=== PATIENT | female | born 1940 | race Caucasian/White ===

== ENCOUNTER → 2016-11-27 | Outpatient (REF) | payer MEDICARE, OTHER ==
[~2016-11-27] MED LIST: NAPR500T OR; PRAV20TA2 OR
[2016-11-27 14:22] LABS: ANION GAP 9 MEQ/L (8-16); BLOOD UREA NITROGEN 11 MG/DL (7-18); CALCIUM LEVEL 8.9 MG/DL (8.8-10.2); CARBON DIOXIDE LEVEL 30 MEQ/L (21-32); CHLORIDE LEVEL 103 MEQ/L (98-107); CREATININE FOR GFR 0.63 MG/DL (0.55-1.02); GLOMERULAR FILTRATION RATE > 60.0 (>39); GLUCOSE, FASTING 96 MG/DL (83-110); POTASSIUM SERUM 4.3 MEQ/L (3.5-5.1); SODIUM LEVEL 142 MEQ/L (136-145)
[2016-11-27 14:25] LABS: BASO % 0.6 % (0.0-1.0); EOS % 1.1 % (0.0-3.0); LARGE UNSTAINED CELL # 0.1 K/mm3 (0.0-0.4); LARGE UNSTAINED CELL % 2.5 % (0.0-4.0); LYMPH % 21.1 % (24.0-44.0); MEAN CORPUSCULAR HEMOGLOBIN 29.8 pg (27.0-33.0); MEAN CORPUSCULAR HGB CONC 33.7 g/dl (32.0-36.5); MEAN CORPUSCULAR VOLUME 88.4 fl (80.0-96.0); MONO # 0.5 K/mm3 (0.0-0.8); MONO % 11.5 % (0.0-5.0); NEUTROPHILS # 2.6 K/mm3 (1.8-7.7); NEUTROPHILS % 63.3 % (36.0-66.0); PLATELET COUNT, AUTOMATED 156 k/mm3 (150-450); RED CELL DISTRIBUTION WIDTH 12.8 % (11.5-14.5); WHITE BLOOD COUNT 4.1 K/mm3 (4.0-10.0)
== END ==
LOC: M LAB REF 14:09
PROVIDERS: ATTEND Physician Assistant
DX: R05 Cough (principal)

== ENCOUNTER → 2016-12-20 | Outpatient (REF) | payer MEDICARE, OTHER ==
[2016-12-20 17:50] LABS: ALBUMIN 3.6 GM/DL (3.2-5.2); ALKALINE PHOSPHATASE 150 U/L (45-117); ALT/SGPT 14 U/L (12-78); ANION GAP 5 MEQ/L (8-16); AST/SGOT 8 U/L (15-37); BILIRUBIN,TOTAL 0.6 MG/DL (0.2-1.0); BLOOD UREA NITROGEN 10 MG/DL (7-18); CALCIUM LEVEL 8.8 MG/DL (8.8-10.2); CARBON DIOXIDE LEVEL 29 MEQ/L (21-32); CHLORIDE LEVEL 106 MEQ/L (98-107); CREATININE FOR GFR 0.58 MG/DL (0.55-1.02); GLOMERULAR FILTRATION RATE > 60.0 (>39); GLUCOSE, FASTING 93 MG/DL (83-110); POTASSIUM SERUM 4.3 MEQ/L (3.5-5.1); SODIUM LEVEL 140 MEQ/L (136-145); T UPTAKE 34 % (30-39); THYROXINE (T4) 9.8 UG/DL (4.5-12.0); TOTAL PROTEIN 6.6 GM/DL (6.4-8.2); URIC ACID 3.2 MG/DL (2.6-6.0)
[2016-12-20 18:01] LABS: BASO % 0.3 % (0.0-1.0); EOS # 0.1 K/mm3 (0.0-0.50); EOS % 1.2 % (0.0-3.0); LARGE UNSTAINED CELL # 0.1 K/mm3 (0.0-0.4); LARGE UNSTAINED CELL % 1.4 % (0.0-4.0); LYMPH # 1.3 K/mm3 (1.5-4.5); LYMPH % 18.5 % (24.0-44.0); MEAN CORPUSCULAR HEMOGLOBIN 30.3 pg (27.0-33.0); MEAN CORPUSCULAR HGB CONC 33.3 g/dl (32.0-36.5); MONO # 0.5 K/mm3 (0.0-0.8); MONO % 6.6 % (0.0-5.0); NEUTROPHILS # 4.9 K/mm3 (1.8-7.7); PLATELET COUNT, AUTOMATED 160 k/mm3 (150-450); RED CELL DISTRIBUTION WIDTH 12.6 % (11.5-14.5); WHITE BLOOD COUNT 6.9 K/mm3 (4.0-10.0)
[2016-12-20 18:36] LABS: ERYTHROCYTE SEDIMENTATION RATE 23 mm/hr (0-30)
== END ==
LOC: M LAB REF 16:19
PROVIDERS: ATTEND Surgery
DX: R09.82 Postnasal drip (principal); M25.50 Pain in unspecified joint; R53.83 Other fatigue

== ENCOUNTER 2018-02-21 08:05 | Emergency (ER) | payer MEDICARE, OTHER | END 2018-02-21 12:56 | disposition home or self-care (01) | LOC: M ED 08:05 | DX: S82.832A Other fracture of upper and lower end of left fibula, initial encounter for closed fracture (principal); S82.392A Other fracture of lower end of left tibia, initial encounter for closed fracture; M17.12 Unilateral primary osteoarthritis, left knee; M19.072 Primary osteoarthritis, left ankle and foot; W01.0XXA Fall on same level from slipping, tripping and stumbling without subsequent striking against object, initial encounter; Y92.098 Other place in other non-institutional residence as the place of occurrence of the external cause; I10 Essential (primary) hypertension; L71.9 Rosacea, unspecified; L40.9 Psoriasis, unspecified; Z79.899 Other long term (current) drug therapy | CPT/HCPCS: 73590 ==

== ENCOUNTER → 2018-12-11 | Outpatient (CLI) | payer MEDICARE, OTHER ==
[~2018-12-11] MED LIST changes: +LEVO25TA5
--- NOTE | 2018-12-11 13:34 | REP ---
RIGHT WRIST, FOUR VIEWS: HISTORY: Wrist pain. There is no acute fracture or dislocation. There is narrowing of the first carpometacarpal and first metacarpal phalangeal joint spaces. Chondrocalcinosis is present. Calcification is present lateral to the navicular. This represents ligamentous or tendon calcification. IMPRESSION: Degenerative change as described above. Electronically Signed by Regino Lino MD 12/11/2018 01:39 P
== END ==
LOC: M ADAMS 11:00
PROVIDERS: ATTEND Physician Assistant Medical
DX: M11.231 Other chondrocalcinosis, right wrist (principal)

== ENCOUNTER → 2019-06-25 | Outpatient (REF) | payer MEDICARE, OTHER | LOC: M LAB REF 16:55 | PROVIDERS: ATTEND Family Medicine | DX: M10.9 Gout, unspecified (principal) ==

== ENCOUNTER 2021-01-27 13:37 | Emergency (ER) | payer MEDICARE, OTHER ==
[~2021-01-27] VITALS: Ht 157.5 cm; Wt 104.5 kg
--- NOTE | 2021-01-27 14:20 | REP ---
INDICATION: CHEST PAIN. COMPARISON: None. TECHNIQUE: Portable FINDINGS: The technique utilized in obtaining the radiograph has magnified the cardiac silhouette and accentuated the interstitial markings. The superior mediastinal structures are midline. The cardiac silhouette is enlarged. The diaphragmatic surfaces of the lungs are regular, and the costophrenic angles are clear. The pulmonary beltran are clear. The imaged osseous structures are intact. IMPRESSION: There is no acute cardiopulmonary disease. There is evidence of mild cardiomegaly accentuated by technique. <Electronically signed by Matias Christopher > 01/27/21 [id number]
[2021-01-27 14:26] LABS: BASO % 0.4 % (0.0-1.0); EOS # 0.1 10^3/uL (0.0-0.5); EOS % 0.9 % (0.0-3.0); HEMATOCRIT 45.3 % (36.0-47.0); HEMOGLOBIN 14.7 g/dl (12.0-15.5); LYMPH # 1.5 10^3/uL (1.5-5.0); LYMPH % 21.4 % (24.0-44.0); MEAN CORPUSCULAR HEMOGLOBIN 28.9 pg (27.0-33.0); MEAN CORPUSCULAR HGB CONC 32.5 g/dl (32.0-36.5); MEAN CORPUSCULAR VOLUME 89.2 fl (80.0-96.0); MONO # 0.5 10^3/uL (0.0-0.8); MONO % 7.7 % (2.0-8.0); NEUTROPHILS # 4.7 10^3/uL (1.5-8.5); NEUTROPHILS % 69.2 % (36.0-66.0); PLATELET COUNT, AUTOMATED 177 10^3/uL (150-450); RED BLOOD COUNT 5.08 10^6/uL (4.00-5.40); WHITE BLOOD COUNT 6.8 10^3/uL (4.0-10.0)
[2021-01-27 15:24] LABS: ALBUMIN 3.8 GM/DL (3.2-5.2); ALT/SGPT 20 U/L (12-78); BILIRUBIN,DIRECT 0.1 MG/DL (0.0-0.2); BILIRUBIN,TOTAL 0.4 MG/DL (0.2-1.0); BLOOD UREA NITROGEN 11 MG/DL (7-18); CALCIUM LEVEL 9.3 MG/DL (8.8-10.2); CARBON DIOXIDE LEVEL 29 MEQ/L (21-32); CHLORIDE LEVEL 107 MEQ/L (98-107); CREATININE FOR GFR 0.51 MG/DL (0.55-1.30); FREE T4 1.07 NG/DL (0.76-1.46); GLOMERULAR FILTRATION RATE > 60.0 (>32); GLUCOSE, FASTING 97 MG/DL (70-100); LIPASE 92 U/L (73-393); MAGNESIUM LEVEL 2.4 MG/DL (1.8-2.4); NT-PRO BNP 120 PG/ML (<450); POTASSIUM SERUM 3.9 MEQ/L (3.5-5.1); SODIUM LEVEL 143 MEQ/L (136-145); TOTAL PROTEIN 6.8 GM/DL (6.4-8.2)
[2021-01-27 16:45] VITALS: BP 175/79
--- NOTE | 2021-01-28 03:17 | ECGEPIP ---
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
== END 2021-01-27 17:32 | disposition home or self-care (01) ==
LOC: M ED 13:37 → EDBD 13:37 → M ED 17:32
DX: R00.2 Palpitations (principal); I51.7 Cardiomegaly; F41.9 Anxiety disorder, unspecified; E78.5 Hyperlipidemia, unspecified; I11.9 Hypertensive heart disease without heart failure

== ENCOUNTER → 2021-05-05 | Outpatient (CLI) | payer MEDICARE ==
--- NOTE | 2021-05-05 15:27 | DEXAMM ---
INDICATION: MENOPAUSAL/N95.9. COMPARISON: None. TECHNIQUE: Bone density was measured using dual-energy x-ray absorptiometry (DEXA). FINDINGS: AP SPINE L1-L4 BMD 1.076 g/cm2 Young Adult T-Score -1.0 Age Matched Z-Score 0.9. LT FEMUR, TOTAL BMD 0.754 g/cm2 Young Adult T-Score -2.0 Age Matched Z-Score 0.1. LT NECK BMD 0.619 g/cm2 Young Adult T-Score -3.0 Age Matched Z-Score -0.8. RT FEMUR, TOTAL BMD 0.671 g/cm2 Young Adult T-Score -2.7 Age Matched Z-Score -0.6. RT NECK BMD 0.638 g/cm2 Young Adult T-Score -2.9 Age Matched Z-Score -0.7. IMPRESSION: There is low bone density of the spine. There is osteoporosis of the left hip. There is osteoporosis of the right hip. FOLLOW-UP: Recommendation for the next bone density exam: 2 years. <Electronically signed by Steve Holman > 05/05/21 [id number]
== END ==
LOC: M WHC 13:01
PROVIDERS: ATTEND Pediatrics
DX: N95.9 Unspecified menopausal and perimenopausal disorder (principal)

== ENCOUNTER → 2022-07-26 | Outpatient (REF) | payer MEDICARE ==
[2022-07-26 17:35] LABS: BASO % 0.7 % (0.0-1.0); EOS # 0.1 10^3/uL (0.0-0.5); EOS % 1.4 % (0.0-3.0); HEMATOCRIT 46.2 % (36.0-47.0); HEMOGLOBIN 14.7 g/dl (12.0-15.5); LYMPH # 1.6 10^3/uL (1.5-5.0); LYMPH % 27.2 % (24.0-44.0); MEAN CORPUSCULAR HEMOGLOBIN 29.5 pg (27.0-33.0); MEAN CORPUSCULAR HGB CONC 31.8 g/dl (32.0-36.5); MEAN CORPUSCULAR VOLUME 92.6 fl (80.0-96.0); MONO # 0.4 10^3/uL (0.0-0.8); MONO % 7.4 % (2.0-8.0); NEUTROPHILS # 3.7 10^3/uL (1.5-8.5); NEUTROPHILS % 63.1 % (36.0-66.0); PLATELET COUNT, AUTOMATED 216 10^3/uL (150-450); RED BLOOD COUNT 4.99 10^6/uL (4.00-5.40); WHITE BLOOD COUNT 5.8 10^3/uL (4.0-10.0)
[2022-07-26 17:53] LABS: BLOOD UREA NITROGEN 10 MG/DL (9-23); CALCIUM LEVEL 9.6 MG/DL (8.3-10.6); CARBON DIOXIDE LEVEL 30 MMOL/L (20-31); CHLORIDE LEVEL 104 MMOL/L (98-107); CHOLESTEROL LEVEL 186 MG/DL (<200); CHOLESTEROL RISK RATIO 3.52 (<5); CREATININE FOR GFR 0.55 MG/DL (0.55-1.30); GLOMERULAR FILTRATION RATE > 60.0 (>32); GLUCOSE, FASTING 85 MG/DL (74-106); HDL CHOLESTEROL 52.8 MG/DL (>40); LDL CHOLESTEROL 110.4 MG/DL (<100); NON-HDL-C 133 MG/DL; POTASSIUM SERUM 4.7 MMOL/L (3.5-5.1); SODIUM LEVEL 143 MMOL/L (136-145); TRIGLYCERIDES LEVEL 114 MG/DL (<150)
[2022-07-26 17:55] LABS: THYROID STIMULATING HORMONE 3.456 uIU/ML (0.55-4.78)
== END ==
LOC: M LAB REF 16:46
PROVIDERS: ATTEND Pediatrics
DX: I10 Essential (primary) hypertension (principal); E03.9 Hypothyroidism, unspecified; E78.5 Hyperlipidemia, unspecified

== ENCOUNTER → 2023-01-30 | Outpatient (REF) | payer MEDICARE, MEDICAID ==
[2023-01-30 17:32] LABS: BASO # 0.1 10^3/uL (0.0-0.2); BASO % 0.9 % (0.0-1.0); EOS # 0.1 10^3/uL (0.0-0.5); EOS % 1.7 % (0.0-3.0); HEMATOCRIT 46.5 % (36.0-47.0); HEMOGLOBIN 14.8 g/dl (12.0-15.5); LYMPH # 1.6 10^3/uL (1.5-5.0); MEAN CORPUSCULAR HEMOGLOBIN 29.1 pg (27.0-33.0); MEAN CORPUSCULAR HGB CONC 31.8 g/dl (32.0-36.5); MEAN CORPUSCULAR VOLUME 91.5 fl (80.0-96.0); MONO # 0.4 10^3/uL (0.0-0.8); MONO % 7.3 % (2.0-8.0); NEUTROPHILS # 3.6 10^3/uL (1.5-8.5); NEUTROPHILS % 61.8 % (36.0-66.0); PLATELET COUNT, AUTOMATED 187 10^3/uL (150-450); RED BLOOD COUNT 5.08 10^6/uL (4.00-5.40); WHITE BLOOD COUNT 5.8 10^3/uL (4.0-10.0)
[2023-01-30 18:03] LABS: ALKALINE PHOSPHATASE 130 U/L (46-116); ALT/SGPT 13 U/L (7.0-40); AST/SGOT 10 U/L (<34); BILIRUBIN,TOTAL 0.7 MG/DL (0.3-1.2); BLOOD UREA NITROGEN 12 MG/DL (9-23); CALCIUM LEVEL 9.6 MG/DL (8.3-10.6); CARBON DIOXIDE LEVEL 28 MMOL/L (20-31); CHLORIDE LEVEL 104 MMOL/L (98-107); CHOLESTEROL LEVEL 197 MG/DL (<200); CHOLESTEROL RISK RATIO 3.36 (<5); GLOMERULAR FILTRATION RATE > 60.0 (>32); GLUCOSE, FASTING 82 MG/DL (74-106); HDL CHOLESTEROL 58.6 MG/DL (>40); NON-HDL-C 138.4 MG/DL; POTASSIUM SERUM 4.8 MMOL/L (3.5-5.1); SODIUM LEVEL 138 MMOL/L (136-145); TOTAL PROTEIN 6.6 G/DL (5.7-8.2); TRIGLYCERIDES LEVEL 82 MG/DL (<150)
[2023-01-30 18:04] LABS: THYROID STIMULATING HORMONE 3.336 uIU/ML (0.55-4.78); TOTAL 25(OH) VITAMIN D 27.4 NG/ML (20.0-100.0)
[2023-01-30 18:15] LABS: HEMOGLOBIN A1c 5.3 % (4.0-6.0)
== END ==
LOC: M LAB REF 16:52
PROVIDERS: ATTEND Pediatrics
DX: E03.9 Hypothyroidism, unspecified (principal); E66.01 Morbid (severe) obesity due to excess calories; E55.9 Vitamin D deficiency, unspecified; Z68.41 Body mass index [BMI] 40.0-44.9, adult; E78.5 Hyperlipidemia, unspecified; Z79.899 Other long term (current) drug therapy

== ENCOUNTER → 2023-03-13 | Outpatient (REF) | payer MEDICARE, MEDICAID ==
[2023-03-13 17:55] LABS: BLOOD UREA NITROGEN 10 MG/DL (9-23); CALCIUM LEVEL 9.2 MG/DL (8.3-10.6); CARBON DIOXIDE LEVEL 28 MMOL/L (20-31); CHLORIDE LEVEL 104 MMOL/L (98-107); CREATININE FOR GFR 0.52 MG/DL (0.55-1.30); GLOMERULAR FILTRATION RATE > 60.0 (>32); GLUCOSE, FASTING 84 MG/DL (74-106); MAGNESIUM LEVEL 1.8 MG/DL (1.8-2.4); POTASSIUM SERUM 4.2 MMOL/L (3.5-5.1); SODIUM LEVEL 141 MMOL/L (136-145)
[2023-03-13 18:03] LABS: CPK CREATINE PHOSPHOKINASE 50 U/L (34-145)
== END ==
LOC: M LAB REF 16:21
PROVIDERS: ATTEND Pediatrics
DX: M79.10 Myalgia, unspecified site (principal)

== ENCOUNTER → 2023-05-02 | Outpatient (REF) | payer MEDICARE, MEDICAID ==
[2023-05-02 20:47] LABS: CHOLESTEROL RISK RATIO 4.76 (<5); LDL CHOLESTEROL 164.4 MG/DL (<100)
== END ==
LOC: M LAB REF 16:31
PROVIDERS: ATTEND Pediatrics
DX: E78.5 Hyperlipidemia, unspecified (principal)

== ENCOUNTER → 2023-08-01 | Outpatient (REF) | payer MEDICARE ==
[2023-08-01 17:55] LABS: ALBUMIN 4.1 G/DL (3.2-5.2); ALKALINE PHOSPHATASE 121 U/L (46-116); ALT/SGPT 14 U/L (7.0-40); AST/SGOT 16 U/L (<34); BILIRUBIN,TOTAL 0.7 MG/DL (0.3-1.2); BLOOD UREA NITROGEN 12 MG/DL (9-23); CALCIUM LEVEL 9.3 MG/DL (8.3-10.6); CARBON DIOXIDE LEVEL 29 MMOL/L (20-31); CHLORIDE LEVEL 106 MMOL/L (98-107); CHOLESTEROL LEVEL 200 MG/DL (<200); CHOLESTEROL RISK RATIO 3.48 (<5); CREATININE FOR GFR 0.52 MG/DL (0.55-1.30); GLOMERULAR FILTRATION RATE > 60.0 (>32); GLUCOSE, FASTING 82 MG/DL (74-106); HDL CHOLESTEROL 57.4 MG/DL (>40); LDL CHOLESTEROL 126.6 MG/DL (<100); NON-HDL-C 142.6 MG/DL; POTASSIUM SERUM 4.4 MMOL/L (3.5-5.1); SODIUM LEVEL 142 MMOL/L (136-145); TOTAL PROTEIN 6.7 G/DL (5.7-8.2); TRIGLYCERIDES LEVEL 80 MG/DL (<150)
[2023-08-01 17:57] LABS: THYROID STIMULATING HORMONE 4.403 uIU/ML (0.55-4.78)
== END ==
LOC: M LAB REF 16:44
PROVIDERS: ATTEND Pediatrics
DX: E03.9 Hypothyroidism, unspecified (principal); E78.5 Hyperlipidemia, unspecified

== ENCOUNTER → 2024-01-08 | Outpatient (REF) | payer MEDICARE | LOC: M LABDRWAD 12:22 | PROVIDERS: ATTEND Pediatrics | DX: E03.9 Hypothyroidism, unspecified (principal) ==

== ENCOUNTER → 2024-02-26 | Outpatient (CLI) | payer MEDICARE | LOC: M RAD 10:42 | PROVIDERS: ATTEND Pediatrics | DX: D17.21 Benign lipomatous neoplasm of skin and subcutaneous tissue of right arm (principal) ==

== ENCOUNTER 2024-04-21 12:18 | Observation (INO) | payer MEDICARE ==
[~2024-04-21] VITALS: Ht 154.9 cm; Wt 100.1 kg
[~2024-04-21 12:18] MED LIST changes: -LEVO25TA5; +LEVO25TA5 PO
[2024-04-21] MEDS ORDERED: CITA10TA7 PO (13:20)
[2024-04-21] MEDS: NAPROXEN 250 MG TAB PO ONE (13:35)
[2024-04-21 15:00] LABS: HEMATOCRIT 44.1 % (36.0-47.0); HEMOGLOBIN 14.6 g/dl (12.0-15.5); MEAN CORPUSCULAR HEMOGLOBIN 29.6 pg (27.0-33.0); MEAN CORPUSCULAR HGB CONC 33.1 g/dl (32.0-36.5); MEAN CORPUSCULAR VOLUME 89.5 fl (80.0-96.0); PLATELET COUNT, AUTOMATED 166 10^3/uL (150-450); RED BLOOD COUNT 4.93 10^6/uL (4.00-5.40); WHITE BLOOD COUNT 10.8 10^3/uL (4.0-10.0)
[2024-04-21 15:20] LABS: BLOOD UREA NITROGEN 13 MG/DL (9-23); CALCIUM LEVEL 9.2 MG/DL (8.3-10.6); CARBON DIOXIDE LEVEL 30 MMOL/L (20-31); CHLORIDE LEVEL 110 MMOL/L (98-107); CREATININE FOR GFR 0.55 MG/DL (0.55-1.30); GLOMERULAR FILTRATION RATE > 60.0 (>32); GLUCOSE, FASTING 102 MG/DL (74-106); POTASSIUM SERUM 4.8 MMOL/L (3.5-5.1); SODIUM LEVEL 144 MMOL/L (136-145)
[2024-04-21 15:23] LABS: CPK CREATINE PHOSPHOKINASE 45 U/L (34-145)
[2024-04-21] MEDS: traMADol 50 MG TAB PO ONE (15:48)
[2024-04-21] MEDS ORDERED: TRAM-533 PO (15:50)
[2024-04-21] MEDS ORDERED: oxyCODONE 5MG TAB PO PRN (17:30)
[2024-04-21] MEDS ORDERED: VITA100054 PO (17:55)
[2024-04-21] MEDS ORDERED: PRAV20TA2 PO (17:55)
[2024-04-21] MEDS ORDERED: HOME MED LIST COMPLETE! XX SCH (18:00)
[2024-04-21 21:04] VITALS: BP 149/66; TEMP 97.7; O2SAT 95
[2024-04-21] MEDS: CYCLOBENZAPRINE 5MG TABLET PO SCH (21:14)
[2024-04-21] MEDS: PRAVASTATIN 20 MG TAB PO SCH (21:14)
[2024-04-21] MEDS: CitaloPRAM (CeleXA) 10 MG TABLET PO SCH (21:14)
[2024-04-21] MEDS: ACETAMINOPHEN 500 MG TAB PO SCH (21:15)
[2024-04-22 03:50] VITALS: BP 124/56; TEMP 97.7; O2SAT 95
[2024-04-22] MEDS: LEVOTHYROXINE 37.5MCG PER 1/2TAB (0.0375MG) PO SCH (05:37)
[2024-04-22 05:58] LABS: HEMATOCRIT 40.1 % (36.0-47.0); HEMOGLOBIN 13.2 g/dl (12.0-15.5); MEAN CORPUSCULAR HEMOGLOBIN 29.5 pg (27.0-33.0); MEAN CORPUSCULAR HGB CONC 32.9 g/dl (32.0-36.5); MEAN CORPUSCULAR VOLUME 89.5 fl (80.0-96.0); PLATELET COUNT, AUTOMATED 142 10^3/uL (150-450); RED BLOOD COUNT 4.48 10^6/uL (4.00-5.40)
[2024-04-22 06:22] LABS: BLOOD UREA NITROGEN 14 MG/DL (9-23); CALCIUM LEVEL 9.1 MG/DL (8.3-10.6); CARBON DIOXIDE LEVEL 29 MMOL/L (20-31); CHLORIDE LEVEL 109 MMOL/L (98-107); CREATININE FOR GFR 0.53 MG/DL (0.55-1.30); GLOMERULAR FILTRATION RATE > 60.0 (>32); GLUCOSE, FASTING 97 MG/DL (74-106); SODIUM LEVEL 141 MMOL/L (136-145)
[2024-04-22] MEDS: ENOXAPARIN 40MG/0.4ML SYRINGE (J1650 PER 10MG) SC SCH (07:59)
[2024-04-22 08:00] VITALS: BP 142/68; TEMP 97.7; O2SAT 98
[2024-04-22 12:00] VITALS: BP 137/64; TEMP 97.9; O2SAT 98
[2024-04-22] MEDS: DOCUSATE SODIUM 100MG CAPSULE PO SCH (14:30)
[2024-04-22] MEDS: PERCOCET 5MG/325MG TAB PO PRN (14:30)
[2024-04-22 16:00] VITALS: BP 152/67; TEMP 97.9; O2SAT 95
[2024-04-22 21:00] VITALS: BP 153/66; TEMP 98.1; O2SAT 95
[2024-04-22] MEDS: SENNA 8.6 MG TAB (SENOKOT) PO SCH (21:10)
[2024-04-22 23:58] VITALS: BP 128/55; TEMP 97.9; O2SAT 93
[2024-04-23 03:20] VITALS: BP 129/55; TEMP 97.9; O2SAT 93
[2024-04-23 07:05] VITALS: BP 140/78; TEMP 97.7; O2SAT 97
[2024-04-23 08:30] VITALS: BP 139/66; TEMP 98.1; O2SAT 96
[2024-04-23 12:30] VITALS: BP 122/58; TEMP 97.5; O2SAT 96
[2024-04-23 16:00] VITALS: BP 142/65; TEMP 97.7; O2SAT 93
[2024-04-23 20:42] VITALS: BP 147/66; TEMP 97.9; O2SAT 94
[2024-04-24 00:20] VITALS: BP 128/57; TEMP 97.7; O2SAT 95
[2024-04-24 04:00] VITALS: BP 130/58; TEMP 97.9; O2SAT 96
[2024-04-24] MEDS: MOM 30ML SUSPENSION UDC PO PRN (08:05)
[2024-04-24] MEDS: PERCOCET 5MG/325MG TAB PO PRN (09:33)
[2024-04-24 12:00] VITALS: BP 123/47; TEMP 97.3; O2SAT 97
[2024-04-24 20:00] VITALS: BP 165/64; TEMP 97.9; O2SAT 98
[2024-04-25 03:37] VITALS: BP 139/59; TEMP 97.9; O2SAT 98
[2024-04-25] MEDS ORDERED: MOM30SS2 PO (09:41)
[2024-04-25] MEDS ORDERED: SENO8.6T5 PO (09:41)
[2024-04-25] MEDS ORDERED: PERCOCET PO (09:41)
[2024-04-25] MEDS ORDERED: COLA100C5 PO (09:41)
== END 2024-04-25 11:33 ==
LOC: M ED 12:18 → EDBD 12:18 → M ED INP 12:19 → M MSPAV 20:53
PROVIDERS: ADMIT Internal Medicine; ATTEND Internal Medicine
DX: S72.114A Nondisplaced fracture of greater trochanter of right femur, initial encounter for closed fracture (principal); W18.31XA Fall on same level due to stepping on an object, initial encounter; Y92.098 Other place in other non-institutional residence as the place of occurrence of the external cause; Y93.89 Activity, other specified; Y99.8 Other external cause status; E03.9 Hypothyroidism, unspecified; E78.5 Hyperlipidemia, unspecified; F32.A Depression, unspecified; I10 Essential (primary) hypertension; M25.551 Pain in right hip; M16.11 Unilateral primary osteoarthritis, right hip; M85.851 Other specified disorders of bone density and structure, right thigh; Z90.49 Acquired absence of other specified parts of digestive tract; Z87.81 Personal history of (healed) traumatic fracture; Z79.899 Other long term (current) drug therapy; Z79.890 Hormone replacement therapy
CPT/HCPCS: 36415; 73502; 73552; 73700; 80048; 82550; 85027; 87426; 96372; 97116; 97161; 97165; 97530; 97535; 99285; G0378; J1650

== ENCOUNTER 2024-04-28 17:40 | Inpatient (IN) | payer MEDICARE, OTHER ==
[~2024-04-28] VITALS: Ht 154.9 cm; Wt 97.9 kg
[~2024-04-28 17:40] MED LIST changes: +CITA10TA7 PO; +COLA100C5 PO; +MOM30SS2 PO; +PERCOCET PO; +PRAV20TA2 PO; +SENO8.6T5 PO; +TRAM-533 PO; +VITA100054 PO
[2024-04-28 23:19] LABS: ALBUMIN 3.6 G/DL (3.2-5.2); ALKALINE PHOSPHATASE 121 U/L (46-116); ALT/SGPT 17 U/L (7.0-40); AST/SGOT 14 U/L (<34); BILIRUBIN,TOTAL 0.5 MG/DL (0.3-1.2); BLOOD UREA NITROGEN 16 MG/DL (9-23); CARBON DIOXIDE LEVEL 29 MMOL/L (20-31); CHLORIDE LEVEL 105 MMOL/L (98-107); CREATININE FOR GFR 0.67 MG/DL (0.55-1.30); GLOMERULAR FILTRATION RATE > 60.0 (>32); GLUCOSE, FASTING 99 MG/DL (74-106); POTASSIUM SERUM 4.4 MMOL/L (3.5-5.1); SODIUM LEVEL 138 MMOL/L (136-145); TOTAL PROTEIN 6.1 G/DL (5.7-8.2)
[2024-04-28] MEDS: ACETAMINOPHEN *IV* 1,000 MG in IV 1 EA IV ONE (23:22)
[2024-04-28 23:23] LABS: BASO % 0.4 % (0.0-1.0); EOS # 0.2 10^3/uL (0.0-0.5); EOS % 2.2 % (0.0-3.0); HEMOGLOBIN 13.3 g/dl (12.0-15.5); LYMPH # 1.4 10^3/uL (1.5-5.0); LYMPH % 18.9 % (24.0-44.0); MEAN CORPUSCULAR HEMOGLOBIN 29.4 pg (27.0-33.0); MEAN CORPUSCULAR HGB CONC 32.4 g/dl (32.0-36.5); MEAN CORPUSCULAR VOLUME 90.7 fl (80.0-96.0); MONO # 0.7 10^3/uL (0.0-0.8); NEUTROPHILS % 69.1 % (36.0-66.0); PLATELET COUNT, AUTOMATED 181 10^3/uL (150-450); RED BLOOD COUNT 4.52 10^6/uL (4.00-5.40); WHITE BLOOD COUNT 7.2 10^3/uL (4.0-10.0)
[2024-04-29] MEDS ORDERED: CITA10TA7 PO (00:31)
[2024-04-29] MEDS ORDERED: DOCU100C16 PO (00:31)
[2024-04-29] MEDS ORDERED: ASPI325T42 PO (00:31)
[2024-04-29] MEDS ORDERED: ATOR1TAB19 PO (00:31)
[2024-04-29] MEDS ORDERED: VITA-168 PO (00:31)
[2024-04-29] MEDS ORDERED: DRIS50003 PO (00:31)
[2024-04-29] MEDS ORDERED: SYNT75TA PO (00:31)
[2024-04-29] MEDS ORDERED: PERC5TAB12 PO (00:43)
[2024-04-29] MEDS ORDERED: SENN-186 PO (00:43)
[2024-04-29] MEDS ORDERED: HOME MED LIST COMPLETE! XX SCH (00:45)
[2024-04-29] MEDS ORDERED: MOM 30ML SUSPENSION UDC PO PRN (01:05)
[2024-04-29] MEDS ORDERED: KETOROLAC 30 MG/ML 1ML VIAL IV PRN (01:10)
[2024-04-29] MEDS ORDERED: PILL CUTTER 1 EACH XX PRN (01:20)
[2024-04-29] MEDS: KETOROLAC 30 MG/ML 1ML VIAL IV PRN (03:13)
[2024-04-29 05:10] VITALS: BP 165/72; TEMP 97.2; O2SAT 94
[2024-04-29 05:12] LABS: INR 1.1; PARTIAL THROMBOPLASTIN TIME 20.8 SECONDS (24.8-34.2); PROTHROMBIN TIME 13.9 SECONDS (12.5-14.5)
[2024-04-29] MEDS: LEVOTHYROXINE 37.5MCG PER 1/2TAB (0.0375MG) PO SCH (05:51)
[2024-04-29 08:08] VITALS: BP 176/78; TEMP 97; O2SAT 96
[2024-04-29] MEDS: DOCUSATE SODIUM 100MG CAPSULE PO SCH (08:31)
[2024-04-29] MEDS: SENNA 8.6 MG TAB (SENOKOT) PO SCH (08:32)
[2024-04-29] MEDS: VITAMIN D 1,000 INTERNATIONAL UNITS TABLET PO SCH (08:32)
[2024-04-29] MEDS: MORPHINE 4 MG/ML 1ML VIAL IV ONE (11:11)
[2024-04-29] MEDS ORDERED: ONDANSETRON 4MG 2ML VIAL IV PRN ×2 (11:15→15:40)
[2024-04-29] MEDS: NS 1,000 ML IV SCH (12:33)
[2024-04-29] MEDS ORDERED: ETOMIDATE INJ 20MG/10ML VIAL As Ordered ONE (12:37)
[2024-04-29] MEDS ORDERED: ROCURONIUM BROMIDE 50MG/5ML VIAL As Ordered ONE (12:37)
[2024-04-29] MEDS ORDERED: LIDOCAINE 2% 100MG/5ML SDV (FOR ANES.) As Ordered ONE (12:37)
[2024-04-29] MEDS ORDERED: SUGAMMADEX SODIUM 500 MG/5 ML VIAL (BRIDION) As Ordered ONE (12:37)
[2024-04-29] MEDS ORDERED: ACETAMINOPHEN 1000MG 100ML IV BAG As Ordered ONE (12:37)
[2024-04-29] MEDS ORDERED: ONDANSETRON 4MG 2ML VIAL As Ordered ONE (12:37)
[2024-04-29] MEDS ORDERED: fentaNYL 100 MCG/2 ML INJECTION As Ordered ONE (12:38)
[2024-04-29] MEDS: ceFAZolin 2 GM/D5W 50 ML IV BAG As Ordered ONE (13:45)
[2024-04-29] MEDS: TRANEXAMIC ACID 100 MG/ML 10ML VIAL As Ordered ONE (14:00)
[2024-04-29] MEDS ORDERED: ePHEDrine SULFATE 25 MG/5 ML(5MG/ML) SYRINGE As Ordered ONE (14:12)
[2024-04-29] MEDS ORDERED: PHENYLEPHRINE 10MG/ML 1ML VIAL As Ordered ONE (14:13)
[2024-04-29] MEDS: LIDOCAINE W/EPINEPHRINE 1% 20ML VIAL As Ordered ONE (15:01)
[2024-04-29] MEDS: LR 1,000 ML IV SCH ×2 (15:20→15:40)
[2024-04-29] MEDS ORDERED: oxyCODONE 5MG TAB PO PRN (15:40)
[2024-04-29] MEDS ORDERED: HYDROMORPHONE HCL 0.5 MG/ 0.5 ML SYRINGE IV PRN (15:40)
[2024-04-29] MEDS ORDERED: fentaNYL 100 MCG/2 ML INJECTION IV PRN (15:40)
[2024-04-29] MEDS: hydrALAZINE 20MG/ML 1ML VIAL IV PRN (15:50)
[2024-04-29] MEDS ORDERED: hydrALAZINE 20MG/ML 1ML VIAL As Ordered ONE (15:55)
[2024-04-29 16:42] VITALS: BP 162/64; TEMP 96.8; O2SAT 97
[2024-04-29 17:19] VITALS: BP 147/63; O2SAT 94
[2024-04-29 18:00] VITALS: BP 135/65; O2SAT 95
[2024-04-29 18:57] VITALS: BP 131/59; O2SAT 97
[2024-04-29] MEDS: ATORVASTATIN 10 MG TAB PO SCH (20:39)
[2024-04-29] MEDS: ACETAMINOPHEN TAB 650MG DOSE (2X325MG) PO PRN (20:40)
[2024-04-29] MEDS: ASPIRIN 81MG ENTERIC TABLET PO SCH (20:40)
[2024-04-29] MEDS: CitaloPRAM (CeleXA) 10 MG TABLET PO SCH (20:40)
[2024-04-29] MEDS: ceFAZolin SOD 2 GM in IV 1 EA IV SCH (21:02)
[2024-04-30 03:57] VITALS: BP 133/71; TEMP 97.8; O2SAT 95
[2024-04-30 04:08] VITALS: BP 127/66; TEMP 98.1; O2SAT 93
[2024-04-30 06:08] LABS: HEMATOCRIT 34.9 % (36.0-47.0); HEMOGLOBIN 11.4 g/dl (12.0-15.5); MEAN CORPUSCULAR HEMOGLOBIN 29.5 pg (27.0-33.0); MEAN CORPUSCULAR HGB CONC 32.7 g/dl (32.0-36.5); MEAN CORPUSCULAR VOLUME 90.4 fl (80.0-96.0); PLATELET COUNT, AUTOMATED 146 10^3/uL (150-450); RED BLOOD COUNT 3.86 10^6/uL (4.00-5.40)
[2024-04-30 06:35] LABS: BLOOD UREA NITROGEN 12 MG/DL (9-23); CALCIUM LEVEL 7.9 MG/DL (8.3-10.6); CARBON DIOXIDE LEVEL 26 MMOL/L (20-31); CHLORIDE LEVEL 107 MMOL/L (98-107); CREATININE FOR GFR 0.51 MG/DL (0.55-1.30); GLOMERULAR FILTRATION RATE > 60.0 (>32); GLUCOSE, FASTING 108 MG/DL (74-106); SODIUM LEVEL 137 MMOL/L (136-145); TOTAL 25(OH) VITAMIN D 36.4 NG/ML (20.0-100.0)
[2024-04-30] MEDS ORDERED: oxyCODONE 5MG TAB PO PRN (07:05)
[2024-04-30] MEDS: KETOROLAC 30 MG/ML 1ML VIAL IV SCH (09:10)
[2024-04-30] MEDS: ACETAMINOPHEN 500 MG TAB PO SCH (09:10)
[2024-04-30] MEDS: FERROUS SULFATE 325MG TAB PO SCH (09:11)
[2024-04-30] MEDS: ASCORBIC ACID 500 MG TAB PO SCH (09:11)
[2024-04-30 12:00] VITALS: BP 129/65; TEMP 97.9; O2SAT 98
[2024-04-30 20:28] VITALS: BP 142/66; TEMP 98.1; O2SAT 95
[2024-05-01 04:28] VITALS: BP 143/58; TEMP 97.7; O2SAT 93
[2024-05-01 06:00] VITALS: BP 131/65
[2024-05-01] MEDS ORDERED: ASCO50TA PO (08:03)
[2024-05-01] MEDS ORDERED: ACET-683 PO (08:03)
[2024-05-01] MEDS ORDERED: FERR1TAB8 PO (08:03)
[2024-05-01] MEDS ORDERED: KETO10TAB PO (10:15)
[2024-05-01] MEDS: FLUBLOK(EGGFREE) TRIVAL(24-25) VACCINE PF 0.5ML SYRINGE 18YRS & OLDER IM.IMMUN ONE (11:46)
[2024-05-01 12:00] VITALS: BP 127/64; TEMP 97.2; O2SAT 96
== END 2024-05-01 13:46 | DRG 481 ==
LOC: EDBD 17:40 → M ED 17:40 → M ED INP 04-29 01:01 → M PCU 04-29 05:02 → M MSPAV 04-30 04:07
PROVIDERS: ADMIT Student in an Organized Health Care Education/Training Program; ATTEND Internal Medicine Nephrology
PROC: 0QS636Z Reposition Right Upper Femur with Intramedullary Internal Fixation Device, Percutaneous Approach (ICD-10-PCS; principal; 2024-04-29 13:00)
DX: S72.141A Displaced intertrochanteric fracture of right femur, initial encounter for closed fracture (principal); Z68.41 Body mass index [BMI] 40.0-44.9, adult; F32.A Depression, unspecified; E03.9 Hypothyroidism, unspecified; I10 Essential (primary) hypertension; S72.111D Displaced fracture of greater trochanter of right femur, subsequent encounter for closed fracture with routine healing; W18.30XA Fall on same level, unspecified, initial encounter; Y93.89 Activity, other specified; L40.9 Psoriasis, unspecified; G89.29 Other chronic pain; M62.838 Other muscle spasm; L71.9 Rosacea, unspecified; E66.01 Morbid (severe) obesity due to excess calories; Y99.8 Other external cause status; M54.9 Dorsalgia, unspecified; Y92.122 Bedroom in nursing home as the place of occurrence of the external cause; E78.5 Hyperlipidemia, unspecified; Z66 Do not resuscitate; E55.9 Vitamin D deficiency, unspecified; Z79.82 Long term (current) use of aspirin; Z79.890 Hormone replacement therapy; Z79.899 Other long term (current) drug therapy; Z90.49 Acquired absence of other specified parts of digestive tract

== ENCOUNTER → 2024-05-09 | Outpatient (CLI) | payer MEDICARE ==
[~2024-05-09] MED LIST changes: +ACET-683 PO; +ASCO50TA PO; +ASPI325T42 PO; +ATOR1TAB19 PO; +DOCU100C16 PO; +DRIS50003 PO; +FERR1TAB8 PO; +KETO10TAB PO; +PERC5TAB12 PO; +SENN-186 PO; +SYNT75TA PO; +VITA-168 PO
== END ==
LOC: M SOG 07:21
PROVIDERS: ATTEND Orthopaedic Surgery
DX: Z47.89 Encounter for other orthopedic aftercare (principal); M25.551 Pain in right hip

== ENCOUNTER → 2024-06-06 | Outpatient (CLI) | payer MEDICARE | LOC: M SOG 07:19 | PROVIDERS: ATTEND Orthopaedic Surgery | DX: S72.141D Displaced intertrochanteric fracture of right femur, subsequent encounter for closed fracture with routine healing (principal); M25.561 Pain in right knee ==

== ENCOUNTER → 2024-08-05 | Outpatient (REF) | payer MEDICARE, MEDICAID ==
[2024-08-05 17:58] LABS: URIC ACID 4.1 MG/DL (3.1-7.8)
[2024-08-05 18:01] LABS: CHOLESTEROL RISK RATIO 3.67 (<5); HDL CHOLESTEROL 55.5 MG/DL (>40); LDL CHOLESTEROL 128.1 MG/DL (<100); NON-HDL-C 148.5 MG/DL
[2024-08-05 18:05] LABS: PTH INTACT 48.2 PG/ML (18.5-88.0)
[2024-08-05 18:07] LABS: THYROID STIMULATING HORMONE 2.751 uIU/ML (0.55-4.78)
== END ==
LOC: M LABDRWAD 17:26
PROVIDERS: ATTEND Pediatrics
DX: E03.9 Hypothyroidism, unspecified (principal); E78.5 Hyperlipidemia, unspecified; M81.0 Age-related osteoporosis without current pathological fracture; M25.50 Pain in unspecified joint

== ENCOUNTER → 2024-10-07 | Outpatient (CLI) | payer MEDICARE, MEDICAID | LOC: M SOG 07:52 | PROVIDERS: ATTEND Orthopaedic Surgery | DX: S72.141D Displaced intertrochanteric fracture of right femur, subsequent encounter for closed fracture with routine healing (principal); M17.11 Unilateral primary osteoarthritis, right knee ==

== ENCOUNTER → 2025-03-03 | Outpatient (REF) | payer MEDICARE ==
[~2025-03-03] MED LIST changes: +D31000CA5 PO; +IBUP1TAB5 PO; -PRAV20TA2 PO; +PRAV20TA78 PO; -VITA100054 PO
[2025-03-03 15:06] LABS: ALT/SGPT 12.0 U/L (7.0-40); AST/SGOT 19.0 U/L (<34); CHOLESTEROL LEVEL 174.0 MG/DL (<200); CHOLESTEROL RISK RATIO 3.5 (<5); LDL CHOLESTEROL 103.5 MG/DL (<100); NON-HDL-C 124.3 MG/DL; TRIGLYCERIDES LEVEL 104.0 MG/DL (<150)
== END ==
LOC: M LABDRWAD 13:26
PROVIDERS: ATTEND Pediatrics
DX: R74.8 Abnormal levels of other serum enzymes (principal); E78.5 Hyperlipidemia, unspecified; E03.9 Hypothyroidism, unspecified

== ENCOUNTER → 2025-04-08 | Outpatient (CLI) | payer MEDICARE ==
[~2025-04-08] MED LIST changes: +SENN-225 PO; -SENO8.6T5 PO
== END ==
LOC: M SOG 06:52
PROVIDERS: ATTEND Orthopaedic Surgery
DX: S72.141D Displaced intertrochanteric fracture of right femur, subsequent encounter for closed fracture with routine healing (principal); M17.11 Unilateral primary osteoarthritis, right knee; M11.261 Other chondrocalcinosis, right knee

== ENCOUNTER → 2025-05-18 | Outpatient (REF) | payer MEDICARE | LOC: M LABDRWAD 16:50 | PROVIDERS: ATTEND Pediatrics | DX: E03.9 Hypothyroidism, unspecified (principal) ==

== ENCOUNTER → 2025-06-29 | Outpatient (REF) | payer MEDICARE | LOC: M LAB REF 15:33 | PROVIDERS: ATTEND Surgery | DX: D48.5 Neoplasm of uncertain behavior of skin (principal) ==